=== PATIENT | male | born 1995 | race Caucasian/White ===

== ENCOUNTER → 2016-09-08 | Outpatient (CLI) | payer OTHER ==
--- NOTE | 2016-09-08 14:17 | DIAGNOSTIC IMAGING REPORT ---
ULTRASOUND RIGHT GROIN NONVASCULAR CLINICAL HISTORY: Right groin pain. FINDINGS: Real-time, grayscale, and color flow sonography of the right groin is performed to assess for inguinal hernia. There is no sonographic evidence of inguinal hernia. No hernia could be elicited by having the patient perform the Valsalva maneuver. Benign-appearing inguinal lymph nodes are incidentally noted in this region. IMPRESSION: There is no sonographic evidence of right inguinal hernia as clinically queried. Electronically signed by: Dustin Schilling M.D. 09/08/2016 2:15 PM Dictated Date/Time: 09/08/2016 2:14 PM
== END | disposition home or self-care (01) ==
LOC: C.ULTR 13:14
PROVIDERS: ATTEND Surgery
DX: R10.30 Lower abdominal pain, unspecified (principal)